=== PATIENT | female | born 1945 | race Two or more races ===

== ENCOUNTER 2023-06-07 11:15 | Inpatient (IN) | payer BC ==
[~2023-06-07] VITALS: Ht 167.6 cm; Wt 83.0 kg
[2023-06-07] MEDS ORDERED: FUROSEMIDE 40 MG/4 ML VIAL IV ONE (11:30)
[2023-06-07] MEDS ORDERED: ALEN70TA3 GT (11:47)
[2023-06-07] MEDS ORDERED: FURO-145 PO (11:47)
[2023-06-07] MEDS ORDERED: EZET10TA16 PO (11:47)
[2023-06-07] MEDS ORDERED: TIMO5DRO18 RIGHTEYE (11:47)
[2023-06-07] MEDS ORDERED: PANT40TA2 PO (11:47)
[2023-06-07] MEDS ORDERED: AMLO2.5T2 PO (11:47)
[2023-06-07] MEDS ORDERED: FUROSEMIDE 40 MG/4 ML VIAL ONE (11:52)
[2023-06-07 12:02] LABS: BASOPHILS % (AUTO) 0.3 % (0.0-2.0); HEMATOCRIT 33 % (33-45); HEMOGLOBIN 10.3 g/dL (11.5-14.8); LYMPHOCYTES # (AUTO) 0.9 K/uL (0.8-4.8); LYMPHOCYTES % (AUTO) 7.9 % (20.0-44.0); MEAN CORPUSCULAR HEMOGLOBIN 27 PG (26.0-33.0); MEAN CORPUSCULAR HGB CONC 31 g/dl (31.0-36.0); MEAN CORPUSCULAR VOLUME 86 fL (82-100); MONOCYTES # (AUTO) 0.8 K/uL (0.1-1.30); MONOCYTES % (AUTO) 6.6 % (2.0-12.0); NEUTROPHILS % (AUTO) 85.2 % (43.0-81.0); PLATELET COUNT (AUTO) 198 K/uL (150-450); RED BLOOD CELL COUNT(AUTO) 3.83 MIL/uL (4.0-5.2); RED CELL DISTRIBUTION WIDTH 19.5 % (11.5-15.0); WHITE BLOOD COUNT (AUTO) 11.7 K/uL (4.3-11.0)
[2023-06-07 12:26] LABS: ALANINE AMINOTRANSFERASE 73 U/L (12-78); ALBUMIN 2.2 g/dL (3.4-5.0); ALKALINE PHOSPHATASE 226 U/L (46-116); ASPARTATE AMINOTRANSFERASE 258 U/L (15-37); BILIRUBIN,DIRECT 5.1 mg/dL (0.0-0.2); CALCIUM, SERUM 9.1 mg/dL (8.5-10.1); CARBON DIOXIDE 20 mmol/L (21-32); CHLORIDE 98 mmol/L (98-107); CREATININE 4.1 mg/dL (0.6-1.3); GLUCOSE 137 mg/dL (74-106); INR 1.85 (0.91-1.10); NT-PRO BNP 1140 pg/mL (0-125); PARTIAL THROMBOPLASTIN TIME 29.4 SEC (24.3-34.3); PROTHROMBIN TIME 18.8 SECS (9.2-11.1); SODIUM SERUM 132 mmol/L (136-145); TOTAL PROTEIN, SERUM 6.8 g/dL (6.4-8.2)
[2023-06-07 12:32] LABS: POTASSIUM 6.2 mmol/L (3.5-5.1); UREA NITROGEN, BLOOD 123 mg/dL (7-18)
[2023-06-07] MEDS ORDERED: CALCIUM CHLORIDE 1,000 MG/10 ML DISP.SYRIN ONE (12:43)
[2023-06-07] MEDS ORDERED: SODIUM POLYSTYRENE SULFONATE 15 G/60 ML BOTTLE ONE (12:43)
[2023-06-07] MEDS ORDERED: SODIUM BICARBONATE SYR 50 MEQ/50 ML DISP.SYRIN ONE (12:43)
[2023-06-07] MEDS ORDERED: DEXTROSE 50%-WATER 50 ML DISP.SYRIN ONE ×2 (12:44→13:18)
[2023-06-07] MEDS ORDERED: INSULIN REGULAR, HUMAN 100 UNIT/ML 10 ML VIAL ONE (12:44)
[2023-06-07] MEDS ORDERED: CEFTRIAXONE 2 G in IV D5W 50 ML IV SCH (13:00)
[2023-06-07] MEDS ORDERED: INSULIN REGULAR, HUMAN 100 UNIT/ML 10 ML VIAL IV ONE (13:00)
[2023-06-07] MEDS ORDERED: MORPHINE SULFATE INJ 2 MG/ML DISP.SYRIN IV PRN (13:00)
[2023-06-07] MEDS ORDERED: ALBUTEROL FS 2.5 MG/3 ML VIAL.NEB NEB ONE (13:00)
[2023-06-07] MEDS ORDERED: hydrALAZINE HCL IV 20 MG VIAL IV PRN (13:00)
[2023-06-07] MEDS ORDERED: SODIUM BICARBONATE SYR 50 MEQ/50 ML DISP.SYRIN IV ONE (13:00)
[2023-06-07] MEDS ORDERED: DEXTROSE 50%-WATER 50 ML DISP.SYRIN IV ONE (13:00)
[2023-06-07] MEDS ORDERED: ONDANSETRON HCL/PF 4 MG/2 ML VIAL IVP PRN (13:00)
[2023-06-07] MEDS ORDERED: CALCIUM CHLORIDE 1,000 MG/10 ML DISP.SYRIN IV ONE (13:00)
[2023-06-07] MEDS ORDERED: ACETAMINOPHEN 325 MG TABLET PO PRN (13:00)
[2023-06-07] MEDS ORDERED: SODIUM POLYSTYRENE SULFONATE 15 G/60 ML BOTTLE PO ONE (13:00)
[2023-06-07 13:10] VITALS: O2SAT 97
[2023-06-07] MEDS ORDERED: ALBUTEROL FS 2.5 MG/3 ML VIAL.NEB ONE (13:11)
[2023-06-07 13:23] LABS: LACTIC ACID 3.4 mmol/L (0.4-2.0)
[2023-06-07 13:32] VITALS: O2SAT 99
[2023-06-07 14:35] VITALS: BP 120/60; TEMP 98; O2SAT 96
[2023-06-07] MEDS: CEFTRIAXONE 2 G in IV D5W 100 ML IV SCH (16:32)
[2023-06-07] MEDS: ENOXAPARIN SODIUM 30 MG/0.3 ML DISP.SYRIN SQ SCH (16:39)
[2023-06-07] MEDS ORDERED: DEXTROSE 50%-WATER 50 ML DISP.SYRIN IV PRN (18:00)
[2023-06-07] MEDS: PANTOPRAZOLE 40 MG TABLET.DR PO SCH (18:35)
[2023-06-07] MEDS: FUROSEMIDE 40 MG/4 ML VIAL IV SCH (18:35)
[2023-06-07] MEDS: BLOOD SUGAR DIAGNOSTIC 1 EACH STRIP IN SCH ×2 (18:36→21:20)
[2023-06-07 20:00] VITALS: BP 77/58; TEMP 97.7; O2SAT 98
[2023-06-07] MEDS ORDERED: ALBUMIN 25% 100 ML IV ONE (20:18)
[2023-06-08] VITALS: BP 95/61; TEMP 97; O2SAT 98
[2023-06-08 04:00] VITALS: BP 110/51; TEMP 97.8; O2SAT 98
[2023-06-08 06:23] LABS: BASOPHILS % (AUTO) 0.1 % (0.0-2.0); EOSINOPHILS % (AUTO) 0.1 % (0.0-6.0); HEMATOCRIT 30 % (33-45); HEMOGLOBIN 9.1 g/dL (11.5-14.8); LYMPHOCYTES # (AUTO) 0.7 K/uL (0.8-4.8); LYMPHOCYTES % (AUTO) 6.3 % (20.0-44.0); MEAN CORPUSCULAR HEMOGLOBIN 27 PG (26.0-33.0); MEAN CORPUSCULAR HGB CONC 31 g/dl (31.0-36.0); MEAN CORPUSCULAR VOLUME 87 fL (82-100); MONOCYTES # (AUTO) 0.6 K/uL (0.1-1.30); MONOCYTES % (AUTO) 5.5 % (2.0-12.0); NEUTROPHILS # (AUTO) 9.5 K/uL (1.8-8.9); PLATELET COUNT (AUTO) 126 K/uL (150-450); RED BLOOD CELL COUNT(AUTO) 3.42 MIL/uL (4.0-5.2); RED CELL DISTRIBUTION WIDTH 19.3 % (11.5-15.0); WHITE BLOOD COUNT (AUTO) 10.8 K/uL (4.3-11.0)
[2023-06-08 06:54] LABS: SERUM AMMONIA 23 umol/L (11-32)
[2023-06-08 06:56] LABS: ALANINE AMINOTRANSFERASE 60 U/L (12-78); ALBUMIN 2.4 g/dL (3.4-5.0); ALKALINE PHOSPHATASE 183 U/L (46-116); ASPARTATE AMINOTRANSFERASE 195 U/L (15-37); BILIRUBIN,TOTAL 6.7 mg/dL (0.2-1.0); CARBON DIOXIDE 24 mmol/L (21-32); CHLORIDE 100 mmol/L (98-107); CREATININE 3.4 mg/dL (0.6-1.3); GLUCOSE 128 mg/dL (74-106); MAGNESIUM 2.9 mg/dL (1.8-2.4); PHOSPHORUS 5.5 mg/dL (2.5-4.9); POTASSIUM 3.7 mmol/L (3.5-5.1); SODIUM SERUM 137 mmol/L (136-145)
[2023-06-08 07:02] LABS: UREA NITROGEN, BLOOD 91 mg/dL (7-18)
[2023-06-08 08:00] VITALS: BP 114/48; TEMP 97.3; O2SAT 98
[2023-06-08] MEDS: INSULIN REGULAR, HUMAN 100 UNIT/ML 3 ML VIAL SQ PRN ×4 (08:03→23:21)
[2023-06-08] MEDS: BLOOD SUGAR DIAGNOSTIC 1 EACH STRIP IN SCH ×4 (08:03→22:50)
[2023-06-08] MEDS: PANTOPRAZOLE 40 MG TABLET.DR PO SCH ×2 (08:51→18:02)
[2023-06-08] MEDS: EZETIMIBE 10 MG TABLET PO SCH (08:51)
[2023-06-08] MEDS: LACTULOSE 10 G/15 ML UDC (PYXIS) PO SCH ×2 (08:51→18:02)
[2023-06-08] MEDS: FUROSEMIDE 40 MG/4 ML VIAL IV SCH ×2 (08:53→18:01)
[2023-06-08] MEDS: AMLODIPINE BESYLATE 2.5 MG TABLET PO SCH (08:58)
[2023-06-08] MEDS: ENOXAPARIN SODIUM 30 MG/0.3 ML DISP.SYRIN SQ SCH (08:59)
[2023-06-08 12:00] VITALS: BP 107/53; TEMP 97.3; O2SAT 97
[2023-06-08] MEDS: CEFTRIAXONE 2 G in IV D5W 100 ML IV SCH (15:07)
[2023-06-08 16:00] VITALS: BP 102/47; TEMP 97.3; O2SAT 97
[2023-06-08 20:00] VITALS: BP 102/55; TEMP 97.2; O2SAT 98
[2023-06-08] MEDS: ALBUMIN 25% 25 GM in PREMIX 1 EA IV PRN (21:29)
[2023-06-09] VITALS: BP 109/52; TEMP 97.6; O2SAT 99
[2023-06-09 04:00] VITALS: BP 107/47; TEMP 97.4; O2SAT 98
[2023-06-09 08:00] VITALS: BP 106/49; TEMP 96.9; O2SAT 96
[2023-06-09] MEDS: BLOOD SUGAR DIAGNOSTIC 1 EACH STRIP IN SCH ×4 (08:17→22:07)
[2023-06-09] MEDS: FUROSEMIDE 40 MG/4 ML VIAL IV SCH ×2 (08:52→17:34)
[2023-06-09] MEDS: AMLODIPINE BESYLATE 2.5 MG TABLET PO SCH (08:52)
[2023-06-09] MEDS: ENOXAPARIN SODIUM 30 MG/0.3 ML DISP.SYRIN SQ SCH (08:56)
[2023-06-09] MEDS: PANTOPRAZOLE 40 MG TABLET.DR PO SCH ×2 (08:57→17:27)
[2023-06-09] MEDS: LACTULOSE 10 G/15 ML UDC (PYXIS) PO SCH ×2 (08:57→17:27)
[2023-06-09] MEDS: EZETIMIBE 10 MG TABLET PO SCH (08:57)
[2023-06-09 09:13] LABS: BASOPHILS % (AUTO) 0.2 % (0.0-2.0); EOSINOPHILS % (AUTO) 0.3 % (0.0-6.0); HEMATOCRIT 30 % (33-45); HEMOGLOBIN 8.9 g/dL (11.5-14.8); LYMPHOCYTES # (AUTO) 0.8 K/uL (0.8-4.8); LYMPHOCYTES % (AUTO) 6.5 % (20.0-44.0); MEAN CORPUSCULAR HEMOGLOBIN 27 PG (26.0-33.0); MEAN CORPUSCULAR HGB CONC 30 g/dl (31.0-36.0); MEAN CORPUSCULAR VOLUME 90 fL (82-100); MONOCYTES # (AUTO) 0.8 K/uL (0.1-1.30); MONOCYTES % (AUTO) 6.9 % (2.0-12.0); NEUTROPHILS % (AUTO) 86.1 % (43.0-81.0); PLATELET COUNT (AUTO) 104 K/uL (150-450); RED BLOOD CELL COUNT(AUTO) 3.34 MIL/uL (4.0-5.2); RED CELL DISTRIBUTION WIDTH 20.2 % (11.5-15.0); WHITE BLOOD COUNT (AUTO) 11.6 K/uL (4.3-11.0)
[2023-06-09 09:32] LABS: CALCIUM, SERUM 8.9 mg/dL (8.5-10.1); CARBON DIOXIDE 19 mmol/L (21-32); CHLORIDE 103 mmol/L (98-107); CREATININE 2.7 mg/dL (0.6-1.3); GLUCOSE 125 mg/dL (74-106); POTASSIUM 3.6 mmol/L (3.5-5.1); SODIUM SERUM 139 mmol/L (136-145); UREA NITROGEN, BLOOD 59 mg/dL (7-18)
[2023-06-09 09:38] LABS: ALANINE AMINOTRANSFERASE 56 U/L (12-78); ALBUMIN 2.6 g/dL (3.4-5.0); ALKALINE PHOSPHATASE 168 U/L (46-116); ASPARTATE AMINOTRANSFERASE 178 U/L (15-37); BILIRUBIN,TOTAL 6.6 mg/dL (0.2-1.0)
[2023-06-09] MEDS: ALBUMIN 25% 25 GM in PREMIX 1 EA IV SCH ×2 (11:43→17:34)
[2023-06-09 12:00] VITALS: BP 116/49; TEMP 97.5; O2SAT 96
[2023-06-09] MEDS: CEFTRIAXONE 2 G in IV D5W 100 ML IV SCH (15:24)
[2023-06-09 16:00] VITALS: BP 119/47; TEMP 97.3; O2SAT 97
[2023-06-09] MEDS: INSULIN REGULAR, HUMAN 100 UNIT/ML 3 ML VIAL SQ PRN (16:54)
[2023-06-09 20:00] VITALS: BP 124/52; TEMP 97; O2SAT 98
[2023-06-10] VITALS: BP 116/58; TEMP 97.3; O2SAT 96
[2023-06-10] MEDS: ALBUMIN 25% 25 GM in PREMIX 1 EA IV SCH ×2 (02:11→15:34)
[2023-06-10 04:00] VITALS: BP 113/45; TEMP 97.8; O2SAT 100
[2023-06-10 06:28] LABS: EOSINOPHILS % (AUTO) 0.1 % (0.0-6.0); HEMATOCRIT 26 % (33-45); HEMOGLOBIN 8.2 g/dL (11.5-14.8); LYMPHOCYTES # (AUTO) 0.6 K/uL (0.8-4.8); LYMPHOCYTES % (AUTO) 6.1 % (20.0-44.0); MEAN CORPUSCULAR HEMOGLOBIN 27 PG (26.0-33.0); MEAN CORPUSCULAR HGB CONC 32 g/dl (31.0-36.0); MEAN CORPUSCULAR VOLUME 86 fL (82-100); MONOCYTES # (AUTO) 0.6 K/uL (0.1-1.30); MONOCYTES % (AUTO) 6.5 % (2.0-12.0); NEUTROPHILS # (AUTO) 8.3 K/uL (1.8-8.9); NEUTROPHILS % (AUTO) 87.3 % (43.0-81.0); PLATELET COUNT (AUTO) 84 K/uL (150-450); RED BLOOD CELL COUNT(AUTO) 3.02 MIL/uL (4.0-5.2); RED CELL DISTRIBUTION WIDTH 19.5 % (11.5-15.0); WHITE BLOOD COUNT (AUTO) 9.6 K/uL (4.3-11.0)
[2023-06-10 06:37] LABS: CALCIUM, SERUM 9.2 mg/dL (8.5-10.1); CARBON DIOXIDE 25 mmol/L (21-32); CHLORIDE 104 mmol/L (98-107); CREATININE 2.2 mg/dL (0.6-1.3); GLUCOSE 103 mg/dL (74-106); SODIUM SERUM 144 mmol/L (136-145); UREA NITROGEN, BLOOD 36 mg/dL (7-18)
[2023-06-10 06:44] LABS: ALANINE AMINOTRANSFERASE 46 U/L (12-78); ALBUMIN 3.8 g/dL (3.4-5.0); ALKALINE PHOSPHATASE 150 U/L (46-116); ASPARTATE AMINOTRANSFERASE 144 U/L (15-37); BILIRUBIN,TOTAL 7.4 mg/dL (0.2-1.0); TOTAL PROTEIN, SERUM 6.5 g/dL (6.4-8.2)
[2023-06-10 07:30] LABS: LYMPHOCYTES % (MANUAL) 5 % (16-48); MONOCYTES % (MANUAL) 7 % (0-11.0); NEUTROPHILS % (MANUAL) 88 (42-76)
[2023-06-10 07:31] LABS: ANISOCYTOSIS 1+; HYPOCHROMASIA 1+; OVALOCYTES 1+; PLATELET ESTIMATE DECREASED; STOMATOCYTES 1+; TARGET CELLS 1+
[2023-06-10 07:43] LABS: MAGNESIUM 2.4 mg/dL (1.8-2.4); PHOSPHORUS 3.2 mg/dL (2.5-4.9)
[2023-06-10 08:00] VITALS: BP 115/53; TEMP 97.8; O2SAT 100
[2023-06-10 08:06] LABS: HEPATITIS Be AB Negative (Negative)
[2023-06-10] MEDS: BLOOD SUGAR DIAGNOSTIC 1 EACH STRIP IN SCH ×4 (08:42→22:38)
[2023-06-10] MEDS: LACTULOSE 10 G/15 ML UDC (PYXIS) PO SCH ×2 (08:42→17:02)
[2023-06-10] MEDS: FUROSEMIDE 40 MG/4 ML VIAL IV SCH ×2 (08:42→17:02)
[2023-06-10] MEDS: EZETIMIBE 10 MG TABLET PO SCH (08:43)
[2023-06-10] MEDS: PANTOPRAZOLE 40 MG TABLET.DR PO SCH ×2 (08:43→17:02)
[2023-06-10] MEDS: AMLODIPINE BESYLATE 2.5 MG TABLET PO SCH (08:43)
[2023-06-10] MEDS: ENOXAPARIN SODIUM 30 MG/0.3 ML DISP.SYRIN SQ SCH (08:43)
[2023-06-10] MEDS: POTASSIUM CHLORIDE 20 MEQ TAB.PRT.SR PO SCH ×2 (10:00→10:46)
[2023-06-10 12:00] VITALS: BP 114/78; TEMP 97.3; O2SAT 100
[2023-06-10 13:27] LABS: WBC, BODY FLUID 127 /cu. mm. (0-200)
[2023-06-10 13:28] LABS: APPEARANCE,SPUN,BODY FLUID CLEAR (CLEAR); TOTAL VOLUME,BODY FLUID 60 mL
[2023-06-10] MEDS: CEFTRIAXONE 2 G in IV D5W 100 ML IV SCH (14:04)
[2023-06-10 14:07] LABS: HEPATITIS Be AG Negative (Negative)
[2023-06-10 14:08] LABS: PROTEIN, BODY FLUID 1.8 G/DL
[2023-06-10] MEDS: ALBUMIN 25% 25 GM in PREMIX 1 EA IV PRN ×2 (15:34→15:35)
[2023-06-10 16:00] VITALS: BP 125/73; TEMP 97.8; O2SAT 100
[2023-06-10] MEDS: INSULIN REGULAR, HUMAN 100 UNIT/ML 3 ML VIAL SQ PRN ×2 (17:46→22:41)
[2023-06-10 17:56] LABS: MACROPHAGES, BODY FLUID 11; POLYNUCLEAR, BODY FLUID 63 % (0-25)
[2023-06-10 20:00] VITALS: BP_SYST 115; BP_SYST 122; BP_DIAS 45; BP_DIAS 49; TEMP 97.3; TEMP 97.5; O2SAT 93; O2SAT 97
[2023-06-11] VITALS: BP 122/49; TEMP 97.3; O2SAT 93
[2023-06-11] MEDS: ALBUMIN 25% 25 GM in PREMIX 1 EA IV SCH (03:12)
[2023-06-11 04:00] VITALS: BP 110/50; TEMP 97.2; O2SAT 98
[2023-06-11 06:31] LABS: EOSINOPHILS % (AUTO) 0.4 % (0.0-6.0); HEMATOCRIT 27 % (33-45); HEMOGLOBIN 8.3 g/dL (11.5-14.8); LYMPHOCYTES # (AUTO) 0.6 K/uL (0.8-4.8); LYMPHOCYTES % (AUTO) 5.9 % (20.0-44.0); MEAN CORPUSCULAR HEMOGLOBIN 27 PG (26.0-33.0); MEAN CORPUSCULAR HGB CONC 30 g/dl (31.0-36.0); MEAN CORPUSCULAR VOLUME 88 fL (82-100); MONOCYTES # (AUTO) 0.7 K/uL (0.1-1.30); MONOCYTES % (AUTO) 6.4 % (2.0-12.0); NEUTROPHILS # (AUTO) 9.1 K/uL (1.8-8.9); NEUTROPHILS % (AUTO) 87.3 % (43.0-81.0); PLATELET COUNT (AUTO) 68 K/uL (150-450); RED BLOOD CELL COUNT(AUTO) 3.09 MIL/uL (4.0-5.2); RED CELL DISTRIBUTION WIDTH 20.1 % (11.5-15.0); WHITE BLOOD COUNT (AUTO) 10.4 K/uL (4.3-11.0)
[2023-06-11 06:41] LABS: CALCIUM, SERUM 9.3 mg/dL (8.5-10.1); CARBON DIOXIDE 25 mmol/L (21-32); CHLORIDE 106 mmol/L (98-107); CREATININE 2.6 mg/dL (0.6-1.3); GLUCOSE 142 mg/dL (74-106); POTASSIUM 2.9 mmol/L (3.5-5.1); SODIUM SERUM 147 mmol/L (136-145); UREA NITROGEN, BLOOD 46 mg/dL (7-18)
[2023-06-11 06:47] LABS: ALANINE AMINOTRANSFERASE 34 U/L (12-78); ALBUMIN 3.9 g/dL (3.4-5.0); ALKALINE PHOSPHATASE 118 U/L (46-116); ASPARTATE AMINOTRANSFERASE 106 U/L (15-37); BILIRUBIN,TOTAL 6.9 mg/dL (0.2-1.0); TOTAL PROTEIN, SERUM 6.2 g/dL (6.4-8.2)
[2023-06-11] MEDS: BLOOD SUGAR DIAGNOSTIC 1 EACH STRIP IN SCH ×4 (07:30→22:35)
[2023-06-11 08:00] VITALS: BP 117/60; TEMP 98.1; O2SAT 97
[2023-06-11 09:07] LABS: PTH, INTACT 157 pg/mL (15-65)
[2023-06-11] MEDS: EZETIMIBE 10 MG TABLET PO SCH (09:07)
[2023-06-11] MEDS: AMLODIPINE BESYLATE 2.5 MG TABLET PO SCH (09:09)
[2023-06-11] MEDS: PANTOPRAZOLE 40 MG TABLET.DR PO SCH ×2 (09:09→17:25)
[2023-06-11] MEDS: FUROSEMIDE 40 MG/4 ML VIAL IV SCH (09:09)
[2023-06-11] MEDS: LACTULOSE 10 G/15 ML UDC (PYXIS) PO SCH ×2 (09:10→17:25)
[2023-06-11] MEDS: ENOXAPARIN SODIUM 30 MG/0.3 ML DISP.SYRIN SQ SCH (09:12)
[2023-06-11] MEDS: INSULIN REGULAR, HUMAN 100 UNIT/ML 3 ML VIAL SQ PRN ×3 (12:06→22:36)
[2023-06-11 12:07] LABS: *SPE A/G RATIO 1.3 (0.7-1.7); *SPE ALBUMIN 3.5 g/dL (2.9-4.4); *SPE ALPHA-1-GLOBULIN 0.1 g/dL (0.0-0.4); *SPE ALPHA-2-GLOBULIN 0.4 g/dL (0.4-1.0); *SPE BETA GLOBULIN 0.8 g/dL (0.7-1.3); *SPE GLOBULIN, TOTAL 2.7 g/dL (2.2-3.9); *SPE M-SPIKE Not Observed g/dL (Not Observed); *SPE PROTEIN TOTAL 6.2 g/dL (6.0-8.5); *SPEGAMMA GLOBULIN 1.3 g/dL (0.4-1.8)
[2023-06-11 13:05] LABS: ANISOCYTOSIS 1+; LYMPHOCYTES % (MANUAL) 5 % (16-48); MONOCYTES % (MANUAL) 6 % (0-11.0); NEUTROPHILS % (MANUAL) 89 (42-76); TARGET CELLS 2+; TEAR DROP CELLS 2+
[2023-06-11 13:06] LABS: PLATELET ESTIMATE DECREASED
[2023-06-11 15:52] LABS: C-REACTIVE PROTEIN 5.7 mg/dL (0.2-0.9); THYROID STIMULATING HORMONE 0.23 uIU/mL (0.358-3.74)
[2023-06-11] MEDS: CEFTRIAXONE 2 G in IV D5W 100 ML IV SCH (15:58)
[2023-06-11 16:00] VITALS: BP 117/60; TEMP 97.2; O2SAT 97
[2023-06-11 16:07] LABS: RHEUMATOID FACTOR SCREEN NEGATIVE (NEGATIVE)
[2023-06-11] MEDS: MEGESTROL ACETATE 40 MG TABLET PO SCH (17:25)
[2023-06-11] MEDS: IV 1/2NS 1000 ML 1,000 ML IV PRN (22:41)
[2023-06-12] VITALS: BP 117/60; TEMP 97.2; O2SAT 97
[2023-06-12 06:22] LABS: BASOPHILS % (AUTO) 0.1 % (0.0-2.0); EOSINOPHILS # (AUTO) 0.1 K/uL (0.0-0.7); EOSINOPHILS % (AUTO) 0.9 % (0.0-6.0); HEMATOCRIT 29 % (33-45); HEMOGLOBIN 9.1 g/dL (11.5-14.8); LYMPHOCYTES # (AUTO) 0.7 K/uL (0.8-4.8); LYMPHOCYTES % (AUTO) 6.6 % (20.0-44.0); MEAN CORPUSCULAR HEMOGLOBIN 27 PG (26.0-33.0); MEAN CORPUSCULAR HGB CONC 32 g/dl (31.0-36.0); MEAN CORPUSCULAR VOLUME 85 fL (82-100); MONOCYTES # (AUTO) 0.7 K/uL (0.1-1.30); MONOCYTES % (AUTO) 6.4 % (2.0-12.0); NEUTROPHILS # (AUTO) 8.9 K/uL (1.8-8.9); PLATELET COUNT (AUTO) 66 K/uL (150-450); RED BLOOD CELL COUNT(AUTO) 3.36 MIL/uL (4.0-5.2); RED CELL DISTRIBUTION WIDTH 20.1 % (11.5-15.0); WHITE BLOOD COUNT (AUTO) 10.3 K/uL (4.3-11.0)
[2023-06-12 06:35] LABS: ALANINE AMINOTRANSFERASE 33 U/L (12-78); ALBUMIN 3.4 g/dL (3.4-5.0); ALKALINE PHOSPHATASE 126 U/L (46-116); ASPARTATE AMINOTRANSFERASE 103 U/L (15-37); BILIRUBIN,TOTAL 6.6 mg/dL (0.2-1.0); CALCIUM, SERUM 9.2 mg/dL (8.5-10.1); CARBON DIOXIDE 26 mmol/L (21-32); CHLORIDE 104 mmol/L (98-107); GLUCOSE 148 mg/dL (74-106); POTASSIUM 2.9 mmol/L (3.5-5.1); SODIUM SERUM 145 mmol/L (136-145); TOTAL PROTEIN, SERUM 5.7 g/dL (6.4-8.2); UREA NITROGEN, BLOOD 50 mg/dL (7-18)
[2023-06-12] MEDS: BLOOD SUGAR DIAGNOSTIC 1 EACH STRIP IN SCH ×4 (07:51→22:31)
[2023-06-12] MEDS: INSULIN REGULAR, HUMAN 100 UNIT/ML 3 ML VIAL SQ PRN ×4 (07:52→22:35)
[2023-06-12 08:00] VITALS: BP 120/61; TEMP 98.4; O2SAT 99
[2023-06-12] MEDS: LACTULOSE 10 G/15 ML UDC (PYXIS) PO SCH ×2 (09:00→16:30)
[2023-06-12] MEDS: AMLODIPINE BESYLATE 2.5 MG TABLET PO SCH (09:00)
[2023-06-12] MEDS: MEGESTROL ACETATE 40 MG TABLET PO SCH ×2 (09:00→16:30)
[2023-06-12] MEDS: PANTOPRAZOLE 40 MG TABLET.DR PO SCH ×2 (09:00→16:30)
[2023-06-12] MEDS: EZETIMIBE 10 MG TABLET PO SCH (09:00)
[2023-06-12] MEDS: ENOXAPARIN SODIUM 30 MG/0.3 ML DISP.SYRIN SQ SCH (10:38)
[2023-06-12 11:07] LABS: IMMUNOGLOBULIN A, SERUM 722 mg/dL (64-422); IMMUNOGLOBULIN G, SERUM 936 mg/dL (586-1602); IMMUNOGLOBULIN M, SERUM 46 mg/dL (26-217)
[2023-06-12 12:07] LABS: FREE KAPPA LT CHAINS SERUM 148.3 mg/L (3.3-19.4); KAPPA/LAMBDA RATIO SERUM 1.59 (0.26-1.65)
[2023-06-12] MEDS: POTASSIUM CL. PREMIX PERIPHER. 50 ML IV SCH ×4 (12:17→16:16)
[2023-06-12 14:07] LABS: HEPATITIS B SURFACE AB Non Reactive (.)
[2023-06-12 16:00] VITALS: BP 130/74; TEMP 98.5; O2SAT 99
[2023-06-12] MEDS: CEFTRIAXONE 2 G in IV D5W 100 ML IV SCH (16:16)
[2023-06-12] MEDS: FERROUS SULFATE (325 MG) 325 MG/TAB TABLET PO SCH (16:30)
[2023-06-12 16:37] LABS: LYMPHOCYTES % (MANUAL) 10 % (16-48); MONOCYTES % (MANUAL) 5 % (0-11.0); NEUTROPHILS % (MANUAL) 85 (42-76)
[2023-06-12 16:38] LABS: ANISOCYTOSIS 1+; HYPOCHROMASIA 1+; OVALOCYTES 1+; PLATELET ESTIMATE DECREASED; TARGET CELLS 3+
[2023-06-12 20:00] VITALS: BP 108/56; TEMP 97.6; O2SAT 98
[2023-06-12] MEDS: IV 1/2NS 1000 ML 1,000 ML IV PRN (20:43)
[2023-06-12 23:06] LABS: FOLIC ACID 5.7 ng/mL (>3.0)
[2023-06-13 04:00] VITALS: BP 123/47; TEMP 97.2; O2SAT 99
[2023-06-13 06:31] LABS: BASOPHILS % (AUTO) 0.3 % (0.0-2.0); EOSINOPHILS # (AUTO) 0.1 K/uL (0.0-0.7); EOSINOPHILS % (AUTO) 0.7 % (0.0-6.0); HEMATOCRIT 31 % (33-45); HEMOGLOBIN 9.9 g/dL (11.5-14.8); LYMPHOCYTES # (AUTO) 0.6 K/uL (0.8-4.8); LYMPHOCYTES % (AUTO) 5.3 % (20.0-44.0); MEAN CORPUSCULAR HEMOGLOBIN 27 PG (26.0-33.0); MEAN CORPUSCULAR HGB CONC 32 g/dl (31.0-36.0); MEAN CORPUSCULAR VOLUME 87 fL (82-100); MONOCYTES # (AUTO) 0.8 K/uL (0.1-1.30); MONOCYTES % (AUTO) 6.3 % (2.0-12.0); NEUTROPHILS # (AUTO) 10.7 K/uL (1.8-8.9); NEUTROPHILS % (AUTO) 87.4 % (43.0-81.0); PLATELET COUNT (AUTO) 60 K/uL (150-450); RED BLOOD CELL COUNT(AUTO) 3.62 MIL/uL (4.0-5.2); RED CELL DISTRIBUTION WIDTH 21.3 % (11.5-15.0); WHITE BLOOD COUNT (AUTO) 12.2 K/uL (4.3-11.0)
[2023-06-13 06:57] LABS: ALANINE AMINOTRANSFERASE 34 U/L (12-78); ALKALINE PHOSPHATASE 140 U/L (46-116); ASPARTATE AMINOTRANSFERASE 103 U/L (15-37); BILIRUBIN,TOTAL 6.8 mg/dL (0.2-1.0); CALCIUM, SERUM 9.3 mg/dL (8.5-10.1); CARBON DIOXIDE 22 mmol/L (21-32); CHLORIDE 103 mmol/L (98-107); CREATININE 3.4 mg/dL (0.6-1.3); GLUCOSE 150 mg/dL (74-106); MAGNESIUM 2.2 mg/dL (1.8-2.4); PHOSPHORUS 3.5 mg/dL (2.5-4.9); POTASSIUM 3.5 mmol/L (3.5-5.1); SODIUM SERUM 142 mmol/L (136-145); TOTAL PROTEIN, SERUM 5.8 g/dL (6.4-8.2); UREA NITROGEN, BLOOD 58 mg/dL (7-18)
[2023-06-13 08:00] VITALS: BP 108/58; TEMP 97.7; O2SAT 99
[2023-06-13] MEDS: INSULIN REGULAR, HUMAN 100 UNIT/ML 3 ML VIAL SQ PRN ×4 (08:05→22:42)
[2023-06-13] MEDS: BLOOD SUGAR DIAGNOSTIC 1 EACH STRIP IN SCH ×4 (08:10→22:41)
[2023-06-13] MEDS: AMLODIPINE BESYLATE 2.5 MG TABLET PO SCH (09:00)
[2023-06-13 09:14] LABS: LYMPHOCYTES % (MANUAL) 3 % (16-48); MONOCYTES % (MANUAL) 6 % (0-11.0); NEUTROPHILS % (MANUAL) 91 (42-76)
[2023-06-13 09:15] LABS: ANISOCYTOSIS 1+; PLATELET ESTIMATE DECRE; TARGET CELLS 2+
[2023-06-13 09:16] LABS: HOWELL-JOLLY BODIES 1+
[2023-06-13] MEDS: FERROUS SULFATE (325 MG) 325 MG/TAB TABLET PO SCH ×2 (10:01→17:10)
[2023-06-13] MEDS: MEGESTROL ACETATE 40 MG TABLET PO SCH ×2 (10:01→17:10)
[2023-06-13] MEDS: LACTULOSE 10 G/15 ML UDC (PYXIS) PO SCH ×2 (10:01→17:10)
[2023-06-13] MEDS: EZETIMIBE 10 MG TABLET PO SCH (10:01)
[2023-06-13] MEDS: PANTOPRAZOLE 40 MG TABLET.DR PO SCH ×2 (10:02→17:10)
[2023-06-13] MEDS: ENOXAPARIN SODIUM 30 MG/0.3 ML DISP.SYRIN SQ SCH (10:03)
[2023-06-13] MEDS ORDERED: NEPRO VAN 237 ML CAN PO PRN (10:30)
[2023-06-13] MEDS: CEFTRIAXONE 2 G in IV D5W 100 ML IV SCH (15:26)
[2023-06-13 16:00] VITALS: BP 111/60; TEMP 97.7; O2SAT 99
[2023-06-13 20:00] VITALS: BP 108/52; TEMP 97.8; O2SAT 99
[2023-06-14] VITALS: BP 115/68; TEMP 98.1; O2SAT 93
[2023-06-14 04:00] VITALS: BP 120/87; TEMP 98.4; O2SAT 99
[2023-06-14] MEDS: BLOOD SUGAR DIAGNOSTIC 1 EACH STRIP IN SCH ×4 (07:40→21:48)
[2023-06-14 08:11] VITALS: BP 121/50; TEMP 98.4; O2SAT 99
[2023-06-14 08:38] LABS: ALANINE AMINOTRANSFERASE 32 U/L (12-78); ALBUMIN 2.8 g/dL (3.4-5.0); ALKALINE PHOSPHATASE 154 U/L (46-116); ASPARTATE AMINOTRANSFERASE 98 U/L (15-37); CARBON DIOXIDE 24 mmol/L (21-32); CHLORIDE 103 mmol/L (98-107); CREATININE 2.8 mg/dL (0.6-1.3); GLUCOSE 137 mg/dL (74-106); MAGNESIUM 2.3 mg/dL (1.8-2.4); PHOSPHORUS 3.3 mg/dL (2.5-4.9); POTASSIUM 4.1 mmol/L (3.5-5.1); SODIUM SERUM 142 mmol/L (136-145); TOTAL PROTEIN, SERUM 5.7 g/dL (6.4-8.2); UREA NITROGEN, BLOOD 44 mg/dL (7-18)
[2023-06-14] MEDS: EZETIMIBE 10 MG TABLET PO SCH (09:09)
[2023-06-14] MEDS: FERROUS SULFATE (325 MG) 325 MG/TAB TABLET PO SCH ×2 (09:09→16:01)
[2023-06-14] MEDS: PANTOPRAZOLE 40 MG TABLET.DR PO SCH ×2 (09:09→16:01)
[2023-06-14] MEDS: LACTULOSE 10 G/15 ML UDC (PYXIS) PO SCH ×2 (09:09→16:01)
[2023-06-14] MEDS: AMLODIPINE BESYLATE 2.5 MG TABLET PO SCH (09:10)
[2023-06-14] MEDS: MEGESTROL ACETATE 40 MG TABLET PO SCH ×2 (09:10→16:01)
[2023-06-14] MEDS: ENOXAPARIN SODIUM 30 MG/0.3 ML DISP.SYRIN SQ SCH (09:11)
[2023-06-14] MEDS: INSULIN REGULAR, HUMAN 100 UNIT/ML 3 ML VIAL SQ PRN ×3 (11:52→21:56)
[2023-06-14] MEDS: CEFTRIAXONE 2 G in IV D5W 100 ML IV SCH (14:13)
[2023-06-14] MEDS: IV 1/2NS 1000 ML 1,000 ML IV PRN (15:57)
[2023-06-14 16:22] VITALS: BP 133/62; TEMP 98.1; O2SAT 99
[2023-06-14 20:00] VITALS: BP 113/75; TEMP 98; O2SAT 98
[2023-06-15 04:00] VITALS: BP 120/63; TEMP 98; O2SAT 97
[2023-06-15 06:20] LABS: BASOPHILS % (AUTO) 0.2 % (0.0-2.0); EOSINOPHILS # (AUTO) 0.1 K/uL (0.0-0.7); EOSINOPHILS % (AUTO) 0.6 % (0.0-6.0); HEMATOCRIT 31 % (33-45); HEMOGLOBIN 9.5 g/dL (11.5-14.8); LYMPHOCYTES % (AUTO) 7.4 % (20.0-44.0); MEAN CORPUSCULAR HEMOGLOBIN 27 PG (26.0-33.0); MEAN CORPUSCULAR HGB CONC 31 g/dl (31.0-36.0); MEAN CORPUSCULAR VOLUME 87 fL (82-100); MONOCYTES # (AUTO) 0.7 K/uL (0.1-1.30); MONOCYTES % (AUTO) 5.5 % (2.0-12.0); NEUTROPHILS # (AUTO) 11.3 K/uL (1.8-8.9); NEUTROPHILS % (AUTO) 86.3 % (43.0-81.0); RED BLOOD CELL COUNT(AUTO) 3.55 MIL/uL (4.0-5.2); RED CELL DISTRIBUTION WIDTH 20.9 % (11.5-15.0); WHITE BLOOD COUNT (AUTO) 13.1 K/uL (4.3-11.0)
[2023-06-15 06:27] LABS: PLATELET COUNT (AUTO) 44 K/uL (150-450)
[2023-06-15 06:46] LABS: ALANINE AMINOTRANSFERASE 35 U/L (12-78); ALBUMIN 2.5 g/dL (3.4-5.0); ALKALINE PHOSPHATASE 166 U/L (46-116); ASPARTATE AMINOTRANSFERASE 102 U/L (15-37); BILIRUBIN,TOTAL 8.1 mg/dL (0.2-1.0); CALCIUM, SERUM 9.2 mg/dL (8.5-10.1); CARBON DIOXIDE 21 mmol/L (21-32); CHLORIDE 102 mmol/L (98-107); CREATININE 3.5 mg/dL (0.6-1.3); GLUCOSE 156 mg/dL (74-106); MAGNESIUM 2.2 mg/dL (1.8-2.4); PHOSPHORUS 3.8 mg/dL (2.5-4.9); SODIUM SERUM 139 mmol/L (136-145); TOTAL PROTEIN, SERUM 5.7 g/dL (6.4-8.2); UREA NITROGEN, BLOOD 52 mg/dL (7-18)
[2023-06-15] MEDS: IV 1/2NS 1000 ML 1,000 ML IV PRN ×2 (07:10→23:37)
[2023-06-15] MEDS: BLOOD SUGAR DIAGNOSTIC 1 EACH STRIP IN SCH ×4 (07:35→21:19)
[2023-06-15 07:37] LABS: ANISOCYTOSIS 1+; LYMPHOCYTES % (MANUAL) 4 % (16-48); MONOCYTES % (MANUAL) 3 % (0-11.0); NEUTROPHILS % (MANUAL) 93 (42-76); PLATELET ESTIMATE DECREASED
[2023-06-15] MEDS: INSULIN REGULAR, HUMAN 100 UNIT/ML 3 ML VIAL SQ PRN ×4 (07:37→21:19)
[2023-06-15 07:38] LABS: TARGET CELLS 2+
[2023-06-15 08:00] VITALS: BP 122/67; TEMP 98.3; O2SAT 97
[2023-06-15] MEDS: MEGESTROL ACETATE 40 MG TABLET PO SCH ×2 (08:35→16:36)
[2023-06-15] MEDS: EZETIMIBE 10 MG TABLET PO SCH (08:35)
[2023-06-15] MEDS: AMLODIPINE BESYLATE 2.5 MG TABLET PO SCH (08:36)
[2023-06-15] MEDS: PANTOPRAZOLE 40 MG TABLET.DR PO SCH ×2 (08:36→16:36)
[2023-06-15] MEDS: FERROUS SULFATE (325 MG) 325 MG/TAB TABLET PO SCH ×2 (08:36→16:36)
[2023-06-15] MEDS: LACTULOSE 10 G/15 ML UDC (PYXIS) PO SCH ×2 (08:37→16:36)
[2023-06-15] MEDS: ENOXAPARIN SODIUM 30 MG/0.3 ML DISP.SYRIN SQ SCH (08:38)
[2023-06-15] MEDS: CEFTRIAXONE 2 G in IV D5W 100 ML IV SCH (14:07)
[2023-06-15 16:04] VITALS: BP 106/80; TEMP 98.3; O2SAT 97
[2023-06-15 20:00] VITALS: BP 124/55; TEMP 98.2; O2SAT 100
[2023-06-16 05:29] VITALS: BP 126/62; TEMP 97.8; O2SAT 100
[2023-06-16 07:07] LABS: INR 1.88 (0.91-1.10); PROTHROMBIN TIME 19.1 SECS (9.2-11.1)
[2023-06-16 07:12] LABS: ALANINE AMINOTRANSFERASE 36 U/L (12-78); ALBUMIN 2.6 g/dL (3.4-5.0); ALKALINE PHOSPHATASE 173 U/L (46-116); ASPARTATE AMINOTRANSFERASE 108 U/L (15-37); BILIRUBIN,TOTAL 8.2 mg/dL (0.2-1.0); CARBON DIOXIDE 21 mmol/L (21-32); CHLORIDE 100 mmol/L (98-107); GLUCOSE 96 mg/dL (74-106); PHOSPHORUS 3.6 mg/dL (2.5-4.9); POTASSIUM 3.8 mmol/L (3.5-5.1); SODIUM SERUM 139 mmol/L (136-145); TOTAL PROTEIN, SERUM 5.6 g/dL (6.4-8.2); UREA NITROGEN, BLOOD 39 mg/dL (7-18)
[2023-06-16 07:16] LABS: EOSINOPHILS # (AUTO) 0.1 K/uL (0.0-0.7); EOSINOPHILS % (AUTO) 0.5 % (0.0-6.0); HEMATOCRIT 31 % (33-45); HEMOGLOBIN 9.3 g/dL (11.5-14.8); LYMPHOCYTES # (AUTO) 0.9 K/uL (0.8-4.8); MEAN CORPUSCULAR HEMOGLOBIN 27 PG (26.0-33.0); MEAN CORPUSCULAR HGB CONC 31 g/dl (31.0-36.0); MEAN CORPUSCULAR VOLUME 87 fL (82-100); MONOCYTES # (AUTO) 0.7 K/uL (0.1-1.30); MONOCYTES % (AUTO) 5.4 % (2.0-12.0); NEUTROPHILS # (AUTO) 11.7 K/uL (1.8-8.9); NEUTROPHILS % (AUTO) 87.1 % (43.0-81.0); RED BLOOD CELL COUNT(AUTO) 3.53 MIL/uL (4.0-5.2); RED CELL DISTRIBUTION WIDTH 21.1 % (11.5-15.0); WHITE BLOOD COUNT (AUTO) 13.4 K/uL (4.3-11.0)
[2023-06-16 07:21] LABS: D-DIMER 9.67 mg/L(FEU (0.17-0.50)
[2023-06-16 07:22] LABS: PLATELET COUNT (AUTO) 33 K/uL (150-450)
[2023-06-16] MEDS: BLOOD SUGAR DIAGNOSTIC 1 EACH STRIP IN SCH ×4 (07:27→22:08)
[2023-06-16 08:54] VITALS: BP 109/57; TEMP 97.3; O2SAT 100
[2023-06-16] MEDS: PANTOPRAZOLE 40 MG TABLET.DR PO SCH ×2 (09:00→17:00)
[2023-06-16] MEDS: FERROUS SULFATE (325 MG) 325 MG/TAB TABLET PO SCH ×2 (09:00→17:00)
[2023-06-16] MEDS: AMLODIPINE BESYLATE 2.5 MG TABLET PO SCH (09:00)
[2023-06-16] MEDS: LACTULOSE 10 G/15 ML UDC (PYXIS) PO SCH ×2 (09:00→17:00)
[2023-06-16] MEDS: MEGESTROL ACETATE 40 MG TABLET PO SCH ×2 (09:00→17:00)
[2023-06-16] MEDS: EZETIMIBE 10 MG TABLET PO SCH (09:00)
[2023-06-16 11:31] LABS: BAND % (MANUAL) 1 % (0.0-5.0); LYMPHOCYTES % (MANUAL) 6 % (16-48); MONOCYTES % (MANUAL) 3 % (0-11.0); MYELOCYTES % 1 % (0-0); NEUTROPHILS % (MANUAL) 89 (42-76); PLATELET ESTIMATE DECREASED
[2023-06-16 11:32] LABS: ANISOCYTOSIS 1+; OVALOCYTES 1+
[2023-06-16] MEDS: CEFTRIAXONE 2 G in IV D5W 100 ML IV SCH (14:21)
[2023-06-16 16:00] VITALS: BP 118/62; TEMP 98.3; O2SAT 100
[2023-06-16] MEDS: ALBUMIN 25% 25 GM in PREMIX 1 EA IV PRN (19:20)
[2023-06-16] MEDS ORDERED: PHYTONADIONE INJ 10 MG/1 ML AMPUL SQ ONE (20:00)
[2023-06-16 21:40] VITALS: BP 100/74; TEMP 98; O2SAT 99
[2023-06-17 04:00] VITALS: BP 90/50; TEMP 97.4; O2SAT 99
[2023-06-17 06:42] LABS: ALANINE AMINOTRANSFERASE 39 U/L (12-78); ALKALINE PHOSPHATASE 151 U/L (46-116); ASPARTATE AMINOTRANSFERASE 171 U/L (15-37); BILIRUBIN,TOTAL 9.2 mg/dL (0.2-1.0); CARBON DIOXIDE 19 mmol/L (21-32); CHLORIDE 99 mmol/L (98-107); CREATININE 2.6 mg/dL (0.6-1.3); GLUCOSE 68 mg/dL (74-106); POTASSIUM 4.2 mmol/L (3.5-5.1); SODIUM SERUM 137 mmol/L (136-145); TOTAL PROTEIN, SERUM 5.6 g/dL (6.4-8.2); UREA NITROGEN, BLOOD 30 mg/dL (7-18)
[2023-06-17] MEDS: BLOOD SUGAR DIAGNOSTIC 1 EACH STRIP IN SCH ×4 (06:57→22:07)
[2023-06-17] MEDS: MEGESTROL ACETATE 40 MG TABLET PO SCH ×3 (09:00→17:03)
[2023-06-17] MEDS: EZETIMIBE 10 MG TABLET PO SCH (09:04)
[2023-06-17] MEDS: PANTOPRAZOLE 40 MG TABLET.DR PO SCH ×2 (09:04→17:04)
[2023-06-17] MEDS: FERROUS SULFATE (325 MG) 325 MG/TAB TABLET PO SCH ×2 (09:04→17:04)
[2023-06-17] MEDS: LACTULOSE 10 G/15 ML UDC (PYXIS) PO SCH ×2 (09:04→17:03)
[2023-06-17] MEDS: AMLODIPINE BESYLATE 2.5 MG TABLET PO SCH (09:07)
[2023-06-17 12:00] VITALS: BP 105/58; TEMP 98.2; O2SAT 99
[2023-06-17 13:12] LABS: BASOPHILS # (AUTO) 0.1 K/uL (0.0-0.2); BASOPHILS % (AUTO) 0.5 % (0.0-2.0); EOSINOPHILS % (AUTO) 0.4 % (0.0-6.0); HEMATOCRIT 28 % (33-45); HEMOGLOBIN 8.5 g/dL (11.5-14.8); LYMPHOCYTES # (AUTO) 0.7 K/uL (0.8-4.8); LYMPHOCYTES % (AUTO) 6.2 % (20.0-44.0); MEAN CORPUSCULAR HEMOGLOBIN 27 PG (26.0-33.0); MEAN CORPUSCULAR HGB CONC 30 g/dl (31.0-36.0); MEAN CORPUSCULAR VOLUME 89 fL (82-100); MONOCYTES # (AUTO) 0.7 K/uL (0.1-1.30); MONOCYTES % (AUTO) 5.6 % (2.0-12.0); NEUTROPHILS # (AUTO) 10.3 K/uL (1.8-8.9); NEUTROPHILS % (AUTO) 87.3 % (43.0-81.0); RED BLOOD CELL COUNT(AUTO) 3.14 MIL/uL (4.0-5.2); RED CELL DISTRIBUTION WIDTH 21.3 % (11.5-15.0); WHITE BLOOD COUNT (AUTO) 11.8 K/uL (4.3-11.0)
[2023-06-17 13:44] LABS: PLATELET COUNT (AUTO) 23 K/uL (150-450)
[2023-06-17] MEDS: CEFTRIAXONE 2 G in IV D5W 100 ML IV SCH (16:14)
[2023-06-17 17:05] LABS: BAND % (MANUAL) 1 % (0.0-5.0); LYMPHOCYTES % (MANUAL) 3 % (16-48); MONOCYTES % (MANUAL) 6 % (0-11.0); NEUTROPHILS % (MANUAL) 90 (42-76)
[2023-06-17 17:06] LABS: ANISOCYTOSIS 2+; HYPOCHROMASIA 2+; PLATELET ESTIMATE DECREASED; TARGET CELLS 2+
[2023-06-17 20:00] VITALS: BP 102/57; TEMP 97.5; O2SAT 98
[2023-06-17] MEDS: INSULIN REGULAR, HUMAN 100 UNIT/ML 3 ML VIAL SQ PRN (22:07)
[2023-06-18] VITALS (10 sets, daily range): BP systolic 90–145; BP diastolic 39–107; TEMP 97.3–98.3; O2SAT 99–100
[2023-06-18] MEDS: IV 1/2NS 1000 ML 1,000 ML IV PRN (02:31)
[2023-06-18 05:59] LABS: CALCIUM, SERUM 9.3 mg/dL (8.5-10.1); CARBON DIOXIDE 17 mmol/L (21-32); CHLORIDE 98 mmol/L (98-107); CREATININE 3.3 mg/dL (0.6-1.3); GLUCOSE 79 mg/dL (74-106); SODIUM SERUM 136 mmol/L (136-145); UREA NITROGEN, BLOOD 40 mg/dL (7-18)
[2023-06-18 06:08] LABS: ALANINE AMINOTRANSFERASE 51 U/L (12-78); ALBUMIN 2.8 g/dL (3.4-5.0); ALKALINE PHOSPHATASE 151 U/L (46-116); ASPARTATE AMINOTRANSFERASE 237 U/L (15-37); BILIRUBIN,TOTAL 10.2 mg/dL (0.2-1.0); TOTAL PROTEIN, SERUM 5.5 g/dL (6.4-8.2)
[2023-06-18 06:09] LABS: BASOPHILS % (AUTO) 0.4 % (0.0-2.0); EOSINOPHILS # (AUTO) 0.1 K/uL (0.0-0.7); EOSINOPHILS % (AUTO) 0.8 % (0.0-6.0); HEMATOCRIT 28 % (33-45); HEMOGLOBIN 8.3 g/dL (11.5-14.8); LYMPHOCYTES # (AUTO) 0.6 K/uL (0.8-4.8); LYMPHOCYTES % (AUTO) 5.1 % (20.0-44.0); MEAN CORPUSCULAR HEMOGLOBIN 27 PG (26.0-33.0); MEAN CORPUSCULAR HGB CONC 30 g/dl (31.0-36.0); MEAN CORPUSCULAR VOLUME 90 fL (82-100); MONOCYTES # (AUTO) 0.5 K/uL (0.1-1.30); MONOCYTES % (AUTO) 4.3 % (2.0-12.0); NEUTROPHILS # (AUTO) 10.4 K/uL (1.8-8.9); NEUTROPHILS % (AUTO) 89.4 % (43.0-81.0); RED BLOOD CELL COUNT(AUTO) 3.05 MIL/uL (4.0-5.2); RED CELL DISTRIBUTION WIDTH 22.1 % (11.5-15.0); WHITE BLOOD COUNT (AUTO) 11.6 K/uL (4.3-11.0)
[2023-06-18 06:10] LABS: INR 2.58 (0.91-1.10); PARTIAL THROMBOPLASTIN TIME 54.3 SEC (24.3-34.3); PROTHROMBIN TIME 25.7 SECS (9.2-11.1)
[2023-06-18 06:20] LABS: PLATELET COUNT (AUTO) 27 K/uL (150-450)
[2023-06-18] MEDS: BLOOD SUGAR DIAGNOSTIC 1 EACH STRIP IN SCH ×4 (08:26→22:11)
[2023-06-18] MEDS: MEGESTROL ACETATE 40 MG TABLET PO SCH ×2 (09:00→17:00)
[2023-06-18] MEDS: AMLODIPINE BESYLATE 2.5 MG TABLET PO SCH (09:00)
[2023-06-18] MEDS: FERROUS SULFATE (325 MG) 325 MG/TAB TABLET PO SCH ×2 (09:00→17:00)
[2023-06-18] MEDS: EZETIMIBE 10 MG TABLET PO SCH (09:00)
[2023-06-18] MEDS: LACTULOSE 10 G/15 ML UDC (PYXIS) PO SCH ×2 (09:00→17:00)
[2023-06-18] MEDS: PANTOPRAZOLE 40 MG TABLET.DR PO SCH ×2 (09:00→17:00)
[2023-06-18 09:10] LABS: BAND % (MANUAL) 10 % (0.0-5.0); LYMPHOCYTES % (MANUAL) 1 % (16-48); MONOCYTES % (MANUAL) 3 % (0-11.0); NEUTROPHILS % (MANUAL) 86 (42-76)
[2023-06-18 09:11] LABS: ANISOCYTOSIS 1+; PLATELET ESTIMATE DECREASED; TARGET CELLS 2+
[2023-06-18 10:38] LABS: MAGNESIUM 2.3 mg/dL (1.8-2.4); PHOSPHORUS 5.3 mg/dL (2.5-4.9)
[2023-06-18] MEDS ORDERED: IV D5/0.45 NACL 1,000 ML IV PRN (12:00)
[2023-06-18] MEDS ORDERED: diphenhydrAMINE HCL 50 MG/ML VIAL IV ONE ×2 (12:30→17:15)
[2023-06-18] MEDS: CEFTRIAXONE 2 G in IV D5W 100 ML IV SCH (14:07)
[2023-06-19 04:00] VITALS: BP 99/50; TEMP 97.2; O2SAT 100
[2023-06-19] MEDS: BLOOD SUGAR DIAGNOSTIC 1 EACH STRIP IN SCH ×2 (06:58→12:00)
[2023-06-19 07:04] LABS: ALANINE AMINOTRANSFERASE 53 U/L (12-78); ALBUMIN 2.7 g/dL (3.4-5.0); ALKALINE PHOSPHATASE 142 U/L (46-116); ASPARTATE AMINOTRANSFERASE 264 U/L (15-37); BILIRUBIN,TOTAL 10.6 mg/dL (0.2-1.0); CALCIUM, SERUM 9.2 mg/dL (8.5-10.1); CARBON DIOXIDE 16 mmol/L (21-32); CHLORIDE 98 mmol/L (98-107); CREATININE 3.9 mg/dL (0.6-1.3); GLUCOSE 94 mg/dL (74-106); POTASSIUM 3.8 mmol/L (3.5-5.1); SODIUM SERUM 136 mmol/L (136-145); TOTAL PROTEIN, SERUM 5.4 g/dL (6.4-8.2); UREA NITROGEN, BLOOD 47 mg/dL (7-18)
[2023-06-19 08:00] VITALS: BP 75/47; TEMP 97.9; O2SAT 92
[2023-06-19] MEDS: EZETIMIBE 10 MG TABLET PO SCH (09:00)
[2023-06-19] MEDS: AMLODIPINE BESYLATE 2.5 MG TABLET PO SCH (09:00)
[2023-06-19 09:34] LABS: BASOPHILS # (AUTO) 0.1 K/uL (0.0-0.2); BASOPHILS % (AUTO) 1.2 % (0.0-2.0); EOSINOPHILS % (AUTO) 0.2 % (0.0-6.0); HEMATOCRIT 27 % (33-45); HEMOGLOBIN 8.2 g/dL (11.5-14.8); LYMPHOCYTES # (AUTO) 0.4 K/uL (0.8-4.8); LYMPHOCYTES % (AUTO) 4.4 % (20.0-44.0); MEAN CORPUSCULAR HEMOGLOBIN 28 PG (26.0-33.0); MEAN CORPUSCULAR HGB CONC 30 g/dl (31.0-36.0); MEAN CORPUSCULAR VOLUME 92 fL (82-100); MONOCYTES # (AUTO) 0.3 K/uL (0.1-1.30); MONOCYTES % (AUTO) 3.5 % (2.0-12.0); NEUTROPHILS # (AUTO) 9.1 K/uL (1.8-8.9); NEUTROPHILS % (AUTO) 90.7 % (43.0-81.0); RED BLOOD CELL COUNT(AUTO) 2.97 MIL/uL (4.0-5.2); RED CELL DISTRIBUTION WIDTH 21.7 % (11.5-15.0)
[2023-06-19 09:53] LABS: PLATELET COUNT (AUTO) 20 K/uL (150-450)
[2023-06-19 09:55] LABS: INR 2.59 (0.91-1.10); PARTIAL THROMBOPLASTIN TIME 71.6 SEC (24.3-34.3); PROTHROMBIN TIME 25.8 SECS (9.2-11.1)
[2023-06-19 10:08] LABS: D-DIMER 18.8 mg/L(FEU (0.17-0.50)
[2023-06-19] MEDS: LACTULOSE 10 G/15 ML UDC (PYXIS) PO SCH (10:08)
[2023-06-19] MEDS: MEGESTROL ACETATE 40 MG TABLET PO SCH (10:08)
[2023-06-19] MEDS: PANTOPRAZOLE 40 MG TABLET.DR PO SCH (10:08)
[2023-06-19] MEDS: FERROUS SULFATE (325 MG) 325 MG/TAB TABLET PO SCH (10:08)
[2023-06-19 10:30] VITALS: BP 74/48
[2023-06-19] MEDS ORDERED: MIDODRINE HCL (5MG) 5 MG TABLET PO SCH (10:30)
[2023-06-19 10:54] LABS: ANISOCYTOSIS 1+; BAND % (MANUAL) 7 % (0.0-5.0); EOSINOPHILS % (MANUAL) 1 % (0-4); HYPOCHROMASIA 1+; LYMPHOCYTES % (MANUAL) 9 % (16-48); MONOCYTES % (MANUAL) 4 % (0-11.0); NEUTROPHILS % (MANUAL) 79 (42-76); PLATELET ESTIMATE DECREASED; TARGET CELLS 1+
[2023-06-19 10:55] LABS: OVALOCYTES 1+
[2023-06-19] MEDS ORDERED: diphenhydrAMINE HCL 50 MG/ML VIAL IV ONE (11:00)
[2023-06-19] MEDS: ALBUMIN 25% 25 GM in PREMIX 1 EA IV PRN (11:54)
[2023-06-19] MEDS: CEFTRIAXONE 2 G in IV D5W 100 ML IV SCH (15:00)
== END 2023-06-19 18:50 | disposition hospice, inpatient (51) | DRG 682 ==
LOC: ER 11:27 → TELE-TD 13:54 → TELE1 14:25 → MEDSG1 06-11 09:43 → TELE1 06-18 20:00
PROVIDERS: ADMIT Internal Medicine; ATTEND Nurse Practitioner Acute Care
PROC: 5A1D70Z Performance of Urinary Filtration, Intermittent, Less than 6 Hours Per Day (ICD-10-PCS; 2023-06-07)
PROC: 05HM33Z Insertion of Infusion Device into Right Internal Jugular Vein, Percutaneous Approach (ICD-10-PCS; 2023-06-07)
PROC: B543ZZA Ultrasonography of Right Jugular Veins, Guidance (ICD-10-PCS; 2023-06-07)
PROC: 05HC33Z Insertion of Infusion Device into Left Basilic Vein, Percutaneous Approach (ICD-10-PCS; principal; 2023-06-08)
PROC: 0W9G3ZX Drainage of Peritoneal Cavity, Percutaneous Approach, Diagnostic (ICD-10-PCS; 2023-06-10)
PROC: 30233M1 Transfusion of Nonautologous Plasma Cryoprecipitate into Peripheral Vein, Percutaneous Approach (ICD-10-PCS; 2023-06-18)
DX: N17.9 Acute kidney failure, unspecified (principal); K76.7 Hepatorenal syndrome; C22.9 Malignant neoplasm of liver, not specified as primary or secondary; E44.0 Moderate protein-calorie malnutrition; G93.40 Encephalopathy, unspecified; E87.20 Acidosis, unspecified; D68.9 Coagulation defect, unspecified; K76.6 Portal hypertension; R18.8 Other ascites; Z87.19 Personal history of other diseases of the digestive system; E11.9 Type 2 diabetes mellitus without complications; I10 Essential (primary) hypertension; K74.60 Unspecified cirrhosis of liver; Z91.013 Allergy to seafood; Z79.83 Long term (current) use of bisphosphonates; Z79.899 Other long term (current) drug therapy; R74.01 Elevation of levels of liver transaminase levels; D64.9 Anemia, unspecified; E80.6 Other disorders of bilirubin metabolism; E87.5 Hyperkalemia; E88.09 Other disorders of plasma-protein metabolism, not elsewhere classified; M81.0 Age-related osteoporosis without current pathological fracture; Z51.5 Encounter for palliative care; Z66 Do not resuscitate; Z99.2 Dependence on renal dialysis; D72.829 Elevated white blood cell count, unspecified; D69.6 Thrombocytopenia, unspecified; E87.6 Hypokalemia; I05.0 Rheumatic mitral stenosis; D50.9 Iron deficiency anemia, unspecified
CPT/HCPCS: 36410; 36415; 49083; 71045-TC; 71250-TC; 74181-TC; 76700-TC; 80048-TC; 80053-TC; 80076-TC; 82010-TC; 82040-TC; 82105; 82140-TC; 82378; 82550-TC; 82607-TC; 82728-TC; 82784; 82962-TC; 83540-TC; 83605-TC; 83735-TC; 83880; 83970; 84100-TC; 84155; 84165; 84439-TC; 84443-TC; 84484-TC; 85025-TC; 85385-TC; 85396; 85610-TC; 85730-TC; 86140-TC; 86225; 86235; 86334; 86431-TC; 86706; 86707; 86803; 86850-TC; 87040-TC; 87340; 87350; 88108-TC; 88305-TC; 88312-TC; 89051-TC; 90935-TC; 92526; 92611-TC; 93307-TC; 97110-TC; 97116-TC; 97530-TC; 97535-TC; A4216; A4223; G0378; J0696; J1200; J1650; J1815; J1940; J3430; J3480; J3490; J7030; J7050; J7060; P9012; P9047